=== PATIENT | male | born 1945 | race Caucasian/White ===

== ENCOUNTER 2017-11-29 07:14 | Inpatient (IN) | payer OTHER, BC ==
[2017-11-29 08:15] VITALS: BMI 33.0
[2017-12-01 06:26] VITALS: PULSE 80
[2017-12-01 06:43] VITALS: BP 110/53; TEMP 97.6
== END 2017-12-01 12:24 | disposition home health service (06) | DRG 470 ==
LOC: FM/S 07:14
PROVIDERS: ADMIT Orthopaedic Surgery; ATTEND Orthopaedic Surgery
PROC: 0SRB0JZ Replacement of Left Hip Joint with Synthetic Substitute, Open Approach (ICD-10-PCS; principal; 2017-11-29)
DX: M16.12 Unilateral primary osteoarthritis, left hip (principal)
CPT/HCPCS: 36415; 73502-TC-LT-FY; 85027; 88304-TC; 88311-TC; 94760; 97116-GP; 97162-GP